=== PATIENT | male | born 1975 | race Caucasian/White ===

== ENCOUNTER → 2020-04-12 | Outpatient (CLI) | payer OTHER ==
[~2020-04-12] MED LIST: ISOVUE-370 76% 100ML VIAL As Ordered ONE
--- NOTE | 2020-04-12 15:29 | REP ---
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 COMPARISON: Comparison chest CT study 25 March 2018. Comparison chest x-ray 09 March 2018.. TECHNIQUE: Contrast dose: 75 ML of Isovue [address] technique: Helical scanning is acquired and contiguous 3 mm axial images are reformatted. In addition, maximum intensity projection and multiplanar re-formation images are generated in sagittal and coronal imaging projections. 3D surface rendered color images are generated and viewed in a rotating format. FINDINGS: There is good opacification of the thoracic aorta and the pulmonary arterial tree. The ascending aorta remains dilated, measuring 4.5 cm in AP dimension by my measurement at the level of the right main pulmonary artery. This is unchanged from my measurement of the ascending aorta at this level on the March 25, 2018 study. There is no evidence of dissection. The descending aorta and aortic arch are normal in caliber. Great vessel origins are unremarkable. There is no filling defect in the pulmonary arterial tree to suggest pulmonary embolism. No pleural or pericardial effusion is seen.. Lung window settings demonstrate clear well inflated lung hopkins. There is no evidence of infiltrate, mass, or significant pulmonary nodule. In the upper abdomen, there is diffuse fatty infiltration of the liver. No abnormality is noted in the spleen. There is an accessory splenule along the inferior margin of the spleen. Pancreas and adrenal glands are unremarkable. No extra thoracic mass or adenopathy is seen. IMPRESSION: No CT evidence of dissection or pulmonary embolus. Aneurysmally dilated ascending aorta, 4.5 cm, felt to be unchanged.. <Electronically signed by Johnathan Laboy > 04/12/20 1522
== END ==
LOC: M RAD 08:30
PROVIDERS: ATTEND Internal Medicine Cardiovascular Disease
DX: I71.2 Thoracic aortic aneurysm, without rupture (principal)
CPT/HCPCS: 71275; Q9967

== ENCOUNTER → 2024-06-01 | Outpatient (CLI) | payer OTHER | LOC: M CARPUL 09:33 | PROVIDERS: ATTEND Registered Nurse | DX: I71.20 Thoracic aortic aneurysm, without rupture, unspecified (principal); I08.2 Rheumatic disorders of both aortic and tricuspid valves ==